=== PATIENT | male | born 1940 | race Caucasian/White ===

== ENCOUNTER → 2024-11-13 09:54 | Outpatient (REF) | payer OTHER, SELFPAY | LOC: HWRAD 09:54 | PROVIDERS: ATTENDING PHYSICIAN Specialist; FAMILY PHYSICIAN Family Medicine | DX: N18.31 Chronic kidney disease, stage 3a (principal); E11.21 Type 2 diabetes mellitus with diabetic nephropathy | CPT/HCPCS: 76770 ==

== ENCOUNTER 2025-02-14 08:03 | Outpatient (RCR) | payer OTHER, SELFPAY ==
[2025-02-07 07:45] VITALS: BP 173/64; BMI 29.4
[2025-02-07] MEDS: FERAHEME 117 MG IV (07:59)
[2025-02-07 08:26] VITALS: BP 175/56
[2025-02-07 08:45] VITALS: BP 168/62
[2025-02-14 08:38] VITALS: BP 185/84
[2025-02-14] MEDS: FERAHEME 117 MG IV (08:53)
[2025-02-14 09:40] VITALS: BP 180/72
[2025-02-14 09:45] VITALS: BP 175/71
== END 2025-02-15 09:26 | disposition home or self-care (01) ==
LOC: OID 08:03
PROVIDERS: ATTENDING PHYSICIAN Specialist; FAMILY PHYSICIAN Family Medicine
DX: N18.31 Chronic kidney disease, stage 3a (principal); E11.21 Type 2 diabetes mellitus with diabetic nephropathy; D50.9 Iron deficiency anemia, unspecified
CPT/HCPCS: 96365; 96411; Q0138